=== PATIENT | female | born 1950 | race Caucasian/White ===

== ENCOUNTER → 2023-02-07 | Outpatient (CLI) | payer BC ==
[2023-02-07 16:46] LABS: HEMOGLOBIN 16.1 g/dL (12.5-16.0); MEAN PLATELET VOLUME 8.4 fl (7.4-10.4); RED BLOOD COUNT 5.17 M/mm3 (4.10-5.30); RED CELL DISTRIBUTION WIDTH 12.3 % (11.5-14.5)
[2023-02-07 16:52] LABS: ALBUMIN 4.5 g/dL (3.4-4.8)
[2023-02-07 16:55] LABS: TOTAL PROTEIN 7.9 g/dL (6.2-8.1)
[2023-02-07 16:57] LABS: TOTAL BILIRUBIN 0.6 mg/dL (0.2-1.2)
== END ==
LOC: LAB 16:29
PROVIDERS: Nurse Practitioner Family
DX: R42 Dizziness and giddiness (principal)